=== PATIENT | male | born 1935 | race Caucasian/White ===

== ENCOUNTER 2022-12-18 19:31 | Inpatient (IN) | payer MEDICARE, SELFPAY ==
[2022-12-18 20:32] LABS: #Eosinphils 0.1 thou/uL (0.0-0.7); #Lymphocytes 1.6 thou/uL (1.20-3.40); #Monocytes 0.6 thou/uL (0.11-0.59); #Neutrophils 4.6 thou/uL (1.40-6.50); %Basophils 0.2 % (0.0-1.0); %Eosinophils 1.9 % (0.0-10.0); %Lymphocytes 22.5 % (21.0-51.0); %Monocytes 9.1 % (0.0-10.0); %Neutrophils 66.3 % (42.0-75.0); Hemoglobin 10.2 g/dL (14.0-18.0); Mean Corpuscular HGB CONC 32.7 g/dL (32.0-36.0); Mean Corpuscular Hemoglobin 31.2 pg (27.0-31.0); Mean Corpuscular Volume 95.5 fl (78.0-98.0); Mean Platelet Volume 9.2 fL (7.4-10.4); Platelet Count 125 10x3/uL (130-400); RBC Distribution Width 14.2 % (11.5-14.5); Red Blood Cell (RBC) Count 3.27 mill/uL (4.70-6.10)
[2022-12-18 20:52] LABS: ALT (SGPT) 27 U/L (8-55); AST (SGOT) 31 U/L (5-34); Albumin 3.4 g/dL (3.4-4.8); Alkaline Phosphatase 84 U/L (40-110); Anion Gap 10 mmol/L (10-20); BUN (Urea Nitrogen) 41 mg/dL (8.4-25.7); Bilirubin, Total 0.4 mg/dL (0.2-1.2); Calc. Creatinine Clearance 0 mL/min (70-130); Calcium 8.6 mg/dL (7.8-10.44); Carbon Dioxide 27 mmol/L (23-31); Chloride 103 mmol/L (98-107); Estimated GFR 35; Globulin 3.6 g/dL (2.4-3.5); Glucose 157 mg/dL (83-110); Potassium 4.5 mmol/L (3.5-5.1); Sodium 135 mmol/L (136-145)
[2022-12-18] MEDS ORDERED: Morphine 4 MG/ML VIAL ONE (22:57)
[2022-12-18] MEDS ORDERED: Ondansetron PF 4 MG/2 ML Vial ONE (22:57)
[2022-12-19] MEDS ORDERED: Morphine 4 MG/ML VIAL ONE ×4 (00:08→17:36)
[2022-12-19 00:31] LABS: Bilirubin Negative (Negative); Blood, Urine Negative (Negative); Clarity Clear (Clear); Glucose, Urine (Dipstick) Normal (Negative); Ketone, Urine Negative (Negative); Leukocyte Negative Leu/uL (Negative); Nitrite Negative (Negative); Protein, Urine (Dipstick) Negative (Neg-Trace); Urobilinogen Normal mg/dL (Less than 2); pH, Urine 5.5 (5.0-9.0)
[2022-12-19] MEDS ORDERED: cefTRIAXone\\ROCEPHIN 2 GM VIAL ONE ×2 (02:12→06:18)
[2022-12-19] MEDS ORDERED: HYDROmorphone 0.5 MG/0.5 ML SYRINGE SLOW IVP SCH (02:15)
[2022-12-19] MEDS ORDERED: Vancomycin 1 GM/200 ML (FROZEN) BAG ONE (02:53)
[2022-12-19] MEDS ORDERED: HYDROmorphone 0.5 MG/0.5 ML SYRINGE ONE (03:17)
[2022-12-19] MEDS: Sodium Chloride 0.9% 1,000 ML IV SCH ×3 (04:02→22:10)
[2022-12-19] MEDS: cefTRIAXone\\ROCEPHIN 2 GM in Sodium Chloride 0.9% 100 ML IVPB SCH ×2 (06:36→07:17)
[2022-12-19] MEDS ORDERED: Metoprolol Tartrate 25 MG TAB ONE (08:11)
[2022-12-19] MEDS: Levothyroxine Sodium 75 MCG TAB PO SCH (08:19)
[2022-12-19] MEDS: Potassium Chloride 10 MEQ TAB PO SCH (08:19)
[2022-12-19] MEDS: Metoprolol Tartrate 25 MG TAB PO SCH ×2 (08:19→22:06)
[2022-12-19] MEDS: Gabapentin 300 MG CAP PO SCH ×3 (08:19→22:06)
[2022-12-19] MEDS: Finasteride 5 MG TAB PO SCH (08:19)
[2022-12-19 08:48] VITALS: BMI 46.2
[2022-12-19] MEDS ORDERED: Rivaroxaban 10 MG TAB PO SCH (09:00)
[2022-12-19] MEDS ORDERED: Heparin 5,000 UNITS/ML VIAL SC SCH (09:00)
[2022-12-19] MEDS ORDERED: Vancomycin 1 GM in Premix Bag 1 BAG IVPB SCH (09:00)
[2022-12-19 09:47] LABS: #Eosinphils 0.1 thou/uL (0.0-0.7); #Lymphocytes 1.3 thou/uL (1.20-3.40); #Monocytes 0.9 thou/uL (0.11-0.59); #Neutrophils 5.3 thou/uL (1.40-6.50); %Eosinophils 1.3 % (0.0-10.0); %Lymphocytes 17.6 % (21.0-51.0); %Monocytes 11.6 % (0.0-10.0); %Neutrophils 69.5 % (42.0-75.0); Hemoglobin 10.9 g/dL (14.0-18.0); Mean Corpuscular Volume 96.7 fl (78.0-98.0); Mean Platelet Volume 8.3 fL (7.4-10.4); Platelet Count 146 10x3/uL (130-400); RBC Distribution Width 14.4 % (11.5-14.5); Red Blood Cell (RBC) Count 3.51 mill/uL (4.70-6.10); White Blood Cell (WBC) Count 7.6 10x3/uL (4.8-10.8)
[2022-12-19] MEDS: Morphine 4 MG/ML VIAL SLOW IVP PRN ×3 (09:52→22:07)
[2022-12-19 10:06] LABS: Anion Gap 14 mmol/L (10-20); BUN (Urea Nitrogen) 40 mg/dL (8.4-25.7); Calc. Creatinine Clearance 52 mL/min (70-130); Calcium 9.1 mg/dL (7.8-10.44); Carbon Dioxide 24 mmol/L (23-31); Chloride 103 mmol/L (98-107); Estimated GFR 35; Glucose 98 mg/dL (83-110); Potassium 5.4 mmol/L (3.5-5.1); Sodium 136 mmol/L (136-145)
[2022-12-19 10:17] LABS: SARS-CoV-2 NAA Rapid Test Not Detected (NotDetected)
[2022-12-19] MEDS: Atorvastatin Calcium 20 MG TAB PO SCH (22:06)
[2022-12-19] MEDS: Terazosin HCl 5 MG CAP PO SCH (22:06)
[2022-12-20] MEDS: rOPINIRole HCl 2 MG TAB PO SCH ×4 (00:12→20:14)
[2022-12-20] MEDS: Morphine 4 MG/ML VIAL SLOW IVP PRN ×2 (02:29→08:13)
[2022-12-20] MEDS: Sodium Chloride 0.9% 1,000 ML IV SCH (04:23)
[2022-12-20] MEDS: VANCOMYCIN 2 GRAM/500 ML BAG 2 GM in Premix Bag 1 BAG IVPB SCH (04:23)
[2022-12-20] MEDS: HYDROcodone/Acetaminophen 7.5/325 mg Tablet PO PRN ×3 (04:57→20:15)
[2022-12-20] MEDS: Levothyroxine Sodium 75 MCG TAB PO SCH (04:57)
[2022-12-20 07:15] LABS: #Eosinphils 0.1 thou/uL (0.0-0.7); #Lymphocytes 1.4 thou/uL (1.20-3.40); #Monocytes 0.7 thou/uL (0.11-0.59); #Neutrophils 5.1 thou/uL (1.40-6.50); %Basophils 0.2 % (0.0-1.0); %Eosinophils 1.8 % (0.0-10.0); %Lymphocytes 19.4 % (21.0-51.0); %Monocytes 9.9 % (0.0-10.0); %Neutrophils 68.6 % (42.0-75.0); Hemoglobin 9.9 g/dL (14.0-18.0); Mean Corpuscular HGB CONC 32.8 g/dL (32.0-36.0); Mean Corpuscular Hemoglobin 31.7 pg (27.0-31.0); Mean Corpuscular Volume 96.7 fl (78.0-98.0); Mean Platelet Volume 8.5 fL (7.4-10.4); Platelet Count 140 10x3/uL (130-400); RBC Distribution Width 14.2 % (11.5-14.5); Red Blood Cell (RBC) Count 3.14 mill/uL (4.70-6.10); White Blood Cell (WBC) Count 7.4 10x3/uL (4.8-10.8)
[2022-12-20 07:33] LABS: Anion Gap 14 mmol/L (10-20); BUN (Urea Nitrogen) 42 mg/dL (8.4-25.7); Calc. Creatinine Clearance 52 mL/min (70-130); Carbon Dioxide 22 mmol/L (23-31); Chloride 104 mmol/L (98-107); Potassium 5.2 mmol/L (3.5-5.1); Sodium 135 mmol/L (136-145)
[2022-12-20 07:34] LABS: Estimated GFR 35; Glucose 102 mg/dL (83-110)
[2022-12-20] MEDS: cefTRIAXone\\ROCEPHIN 2 GM in Sodium Chloride 0.9% 100 ML IVPB SCH (07:35)
[2022-12-20] MEDS: Potassium Chloride 10 MEQ TAB PO SCH (08:06)
[2022-12-20] MEDS: Finasteride 5 MG TAB PO SCH (08:06)
[2022-12-20] MEDS: Metoprolol Tartrate 25 MG TAB PO SCH (08:12)
[2022-12-20] MEDS: Gabapentin 300 MG CAP PO SCH ×3 (08:12→20:13)
[2022-12-20] MEDS ORDERED: Dextrose 50% Abboject 50 ML SYRINGE SLOW IVP SCH (08:30)
[2022-12-20] MEDS ORDERED: Insulin Regular 300 UNITS/3 ML VIAL IVP SCH (08:30)
[2022-12-20] MEDS: Rivaroxaban 15 MG TAB PO SCH (16:05)
[2022-12-20] MEDS: Terazosin HCl 5 MG CAP PO SCH (20:13)
[2022-12-20] MEDS: Atorvastatin Calcium 20 MG TAB PO SCH (20:14)
[2022-12-21] MEDS: HYDROcodone/Acetaminophen 7.5/325 mg Tablet PO PRN ×4 (00:11→21:50)
[2022-12-21] MEDS: Morphine 4 MG/ML VIAL SLOW IVP PRN ×3 (01:19→21:51)
[2022-12-21 02:38] LABS: Vancomycin, Trough 16.8 ug/mL
[2022-12-21 02:54] LABS: Anion Gap 16 mmol/L (10-20); BUN (Urea Nitrogen) 39 mg/dL (8.4-25.7); Calc. Creatinine Clearance 64 mL/min (70-130); Calcium 9.2 mg/dL (7.8-10.44); Carbon Dioxide 19 mmol/L (23-31); Chloride 105 mmol/L (98-107); Estimated GFR 45; Glucose 117 mg/dL (83-110); Potassium 4.9 mmol/L (3.5-5.1); Sodium 135 mmol/L (136-145)
[2022-12-21] MEDS: VANCOMYCIN 2 GRAM/500 ML BAG 2 GM in Premix Bag 1 BAG IVPB SCH (03:23)
[2022-12-21 03:26] LABS: Bilirubin Negative (Negative); Blood, Urine 3+ (Negative); CAUTI Indications for Culture Acute Hematuria; Clarity Extra Turbid (Clear); Glucose, Urine (Dipstick) Normal (Negative); Ketone, Urine Negative (Negative); Leukocyte 250 Leu/uL (Negative); Nitrite Negative (Negative); Protein, Urine (Dipstick) 70 mg/dL (Neg-Trace); RBC/HPF Greater than 50 HPF (0-3); Squamous Epithelial None Seen HPF (0-3); Urobilinogen Normal mg/dL (Less than 2)
[2022-12-21 03:27] LABS: Bacteria/HPF 1+ HPF (None Seen); Urine Culture Reflex Yes Yes
[2022-12-21] MEDS: Levothyroxine Sodium 75 MCG TAB PO SCH (06:06)
[2022-12-21] MEDS: rOPINIRole HCl 2 MG TAB PO SCH ×2 (08:22→21:50)
[2022-12-21] MEDS: Gabapentin 300 MG CAP PO SCH ×3 (08:22→21:50)
[2022-12-21] MEDS: Finasteride 5 MG TAB PO SCH (08:23)
[2022-12-21] MEDS: cefTRIAXone\\ROCEPHIN 2 GM in Sodium Chloride 0.9% 100 ML IVPB SCH (09:36)
[2022-12-21] MEDS: Rivaroxaban 15 MG TAB PO SCH (16:32)
[2022-12-21] MEDS ORDERED: Ipratropium/Albuterol 3 ML NEB NEB SCH (16:45)
[2022-12-21] MEDS: Atorvastatin Calcium 20 MG TAB PO SCH (21:50)
[2022-12-21] MEDS: Terazosin HCl 5 MG CAP PO SCH (21:50)
[2022-12-21] MEDS: Ipratropium/Albuterol 3 ML NEB NEB PRN (22:03)
[2022-12-22] MEDS: Morphine 4 MG/ML VIAL SLOW IVP PRN (05:34)
[2022-12-22] MEDS: HYDROcodone/Acetaminophen 7.5/325 mg Tablet PO PRN ×2 (05:35→09:47)
[2022-12-22] MEDS: cefTRIAXone\\ROCEPHIN 2 GM in Sodium Chloride 0.9% 100 ML IVPB SCH (05:36)
[2022-12-22] MEDS: Levothyroxine Sodium 75 MCG TAB PO SCH (05:36)
[2022-12-22 06:11] LABS: Hemoglobin 9.2 g/dL (14.0-18.0); Mean Corpuscular HGB CONC 31.9 g/dL (32.0-36.0); Mean Corpuscular Hemoglobin 30.5 pg (27.0-31.0); Mean Corpuscular Volume 95.7 fl (78.0-98.0); Mean Platelet Volume 7.9 fL (7.4-10.4); Platelet Count 170 10x3/uL (130-400); RBC Distribution Width 14.2 % (11.5-14.5); Red Blood Cell (RBC) Count 3.01 mill/uL (4.70-6.10); White Blood Cell (WBC) Count 5.5 10x3/uL (4.8-10.8)
[2022-12-22] MEDS: VANCOMYCIN 2 GRAM/500 ML BAG 2 GM in Premix Bag 1 BAG IVPB SCH (09:39)
[2022-12-22] MEDS: Gabapentin 300 MG CAP PO SCH ×3 (09:39→20:26)
[2022-12-22] MEDS: rOPINIRole HCl 2 MG TAB PO SCH ×2 (09:42→20:26)
[2022-12-22] MEDS: Finasteride 5 MG TAB PO SCH (09:42)
[2022-12-22] MEDS ORDERED: Docusate 100 MG CAP PO SCH (09:45)
[2022-12-22] MEDS ORDERED: Polyethylene Glycol 3350 17 GM Packet PO SCH (09:45)
[2022-12-22] MEDS: Nystatin Powder 15 GM BOT TOP PRN (11:04)
[2022-12-22] MEDS: HYDROcodone/Acetaminophen 10/325 mg Tablet PO PRN ×2 (14:28→20:27)
[2022-12-22] MEDS: Lidocaine 5% Patch TD SCH (14:46)
[2022-12-22] MEDS: Ipratropium/Albuterol 3 ML NEB NEB PRN (15:04)
[2022-12-22] MEDS: Rivaroxaban 15 MG TAB PO SCH (18:10)
[2022-12-22] MEDS: Cefepime 1 GM in Sodium Chloride 0.9% 100 ML IVPB SCH (20:25)
[2022-12-22] MEDS: Terazosin HCl 5 MG CAP PO SCH (20:26)
[2022-12-22] MEDS: Atorvastatin Calcium 20 MG TAB PO SCH (20:26)
[2022-12-23] MEDS ORDERED: Transdermal Patch Removal TOP SCH (00:01)
[2022-12-23] MEDS: HYDROcodone/Acetaminophen 10/325 mg Tablet PO PRN ×4 (03:07→18:22)
[2022-12-23] MEDS: Ipratropium/Albuterol 3 ML NEB NEB PRN ×2 (03:22→16:06)
[2022-12-23] MEDS: Levothyroxine Sodium 75 MCG TAB PO SCH (05:06)
[2022-12-23] MEDS: rOPINIRole HCl 2 MG TAB PO SCH ×2 (08:32→21:02)
[2022-12-23] MEDS: Docusate 100 MG CAP PO PRN (08:32)
[2022-12-23] MEDS: Polyethylene Glycol 3350 17 GM Packet PO PRN (08:32)
[2022-12-23] MEDS: Finasteride 5 MG TAB PO SCH (08:33)
[2022-12-23] MEDS: Cefepime 1 GM in Sodium Chloride 0.9% 100 ML IVPB SCH ×2 (08:33→21:02)
[2022-12-23] MEDS: Gabapentin 300 MG CAP PO SCH ×3 (08:33→21:02)
[2022-12-23] MEDS: VANCOMYCIN 2 GRAM/500 ML BAG 2 GM in Premix Bag 1 BAG IVPB SCH (10:05)
[2022-12-23] MEDS: Morphine 4 MG/ML VIAL SLOW IVP PRN ×2 (10:21→21:09)
[2022-12-23] MEDS: Lidocaine 5% Patch TD SCH (13:50)
[2022-12-23] MEDS: Lidocaine 4% Patch TD SCH (14:09)
[2022-12-23] MEDS: Rivaroxaban 15 MG TAB PO SCH (18:22)
[2022-12-23] MEDS: Terazosin HCl 5 MG CAP PO SCH (21:01)
[2022-12-23] MEDS: Atorvastatin Calcium 20 MG TAB PO SCH (21:02)
[2022-12-23] MEDS: Nystatin Powder 15 GM BOT TOP PRN (21:10)
[2022-12-24] MEDS: HYDROcodone/Acetaminophen 10/325 mg Tablet PO PRN ×2 (00:10→05:09)
[2022-12-24] MEDS: LIDOCAINE Patch Removal TOP SCH (01:56)
[2022-12-24] MEDS: Ipratropium/Albuterol 3 ML NEB NEB PRN (02:06)
[2022-12-24] MEDS: Levothyroxine Sodium 75 MCG TAB PO SCH (05:09)
[2022-12-24] MEDS: rOPINIRole HCl 2 MG TAB PO SCH ×2 (07:41→20:03)
[2022-12-24] MEDS: Gabapentin 300 MG CAP PO SCH ×3 (07:41→20:03)
[2022-12-24] MEDS: Cefepime 1 GM in Sodium Chloride 0.9% 100 ML IVPB SCH ×2 (07:42→20:04)
[2022-12-24] MEDS: Finasteride 5 MG TAB PO SCH (07:42)
[2022-12-24] MEDS: Morphine 4 MG/ML VIAL SLOW IVP PRN ×2 (07:43→08:47)
[2022-12-24 08:54] LABS: Vancomycin, Random 14.8 ug/mL (See Comment)
[2022-12-24] MEDS ORDERED: VANCOMYCIN 2 GRAM/500 ML BAG 2 GM in Premix Bag 1 BAG IVPB SCH (09:00)
[2022-12-24 09:14] LABS: Anion Gap 15 mmol/L (10-20); BUN (Urea Nitrogen) 28 mg/dL (8.4-25.7); Calc. Creatinine Clearance 86 mL/min (70-130); Calcium 9.4 mg/dL (7.8-10.44); Carbon Dioxide 21 mmol/L (23-31); Chloride 104 mmol/L (98-107); Estimated GFR 64; Glucose 89 mg/dL (83-110); Potassium 4.9 mmol/L (3.5-5.1); Sodium 135 mmol/L (136-145)
[2022-12-24] MEDS ORDERED: Ipratropium/Albuterol 3 ML NEB NEB SCH (10:30)
[2022-12-24] MEDS ORDERED: Torsemide 100 MG TAB PO SCH (10:45)
[2022-12-24] MEDS: Vancomycin 1.5 GRAM/300 ML BAG 1.5 GM in Premix Bag 1 BAG IVPB SCH (12:12)
[2022-12-24] MEDS: Lidocaine 4% Patch TD SCH (18:16)
[2022-12-24] MEDS: Rivaroxaban 10 MG TAB PO SCH (18:17)
[2022-12-24] MEDS: Terazosin HCl 5 MG CAP PO SCH (20:03)
[2022-12-24] MEDS: HYDROcodone/Acetaminophen 7.5/325 mg Tablet PO PRN (20:03)
[2022-12-24] MEDS: Atorvastatin Calcium 20 MG TAB PO SCH (20:04)
[2022-12-25] MEDS: HYDROcodone/Acetaminophen 10/325 mg Tablet PO PRN ×3 (03:38→15:03)
[2022-12-25] MEDS: Levothyroxine Sodium 75 MCG TAB PO SCH (06:26)
[2022-12-25] MEDS: LIDOCAINE Patch Removal TOP SCH (06:26)
[2022-12-25] MEDS: Cefepime 1 GM in Sodium Chloride 0.9% 100 ML IVPB SCH ×2 (08:14→20:13)
[2022-12-25] MEDS: rOPINIRole HCl 2 MG TAB PO SCH ×2 (08:15→21:24)
[2022-12-25] MEDS: Gabapentin 300 MG CAP PO SCH ×3 (08:15→20:14)
[2022-12-25] MEDS: Finasteride 5 MG TAB PO SCH (08:15)
[2022-12-25] MEDS: Ipratropium/Albuterol 3 ML NEB NEB PRN ×2 (08:16→23:35)
[2022-12-25] MEDS: Polyethylene Glycol 3350 17 GM Packet PO PRN (08:37)
[2022-12-25] MEDS: Torsemide 100 MG TAB PO SCH (08:37)
[2022-12-25] MEDS: Docusate 100 MG CAP PO PRN (08:37)
[2022-12-25] MEDS: Vancomycin 1.5 GRAM/300 ML BAG 1.5 GM in Premix Bag 1 BAG IVPB SCH (09:58)
[2022-12-25] MEDS: Ondansetron PF 4 MG/2 ML Vial IVP PRN ×2 (10:30→10:32)
[2022-12-25] MEDS ORDERED: Bisacodyl 10 MG SUPP PR SCH (11:45)
[2022-12-25] MEDS: Lidocaine 4% Patch TD SCH (15:04)
[2022-12-25] MEDS: Rivaroxaban 10 MG TAB PO SCH (18:03)
[2022-12-25] MEDS: Terazosin HCl 5 MG CAP PO SCH (20:14)
[2022-12-25] MEDS: Atorvastatin Calcium 20 MG TAB PO SCH (20:16)
[2022-12-25] MEDS: Docusate 100 MG CAP PO SCH (20:16)
[2022-12-25] MEDS: Polyethylene Glycol 3350 17 GM Packet PO SCH (20:17)
[2022-12-25] MEDS: HYDROcodone/Acetaminophen 7.5/325 mg Tablet PO PRN (23:25)
[2022-12-26] MEDS: LIDOCAINE Patch Removal TOP SCH (02:09)
[2022-12-26] MEDS: Levothyroxine Sodium 75 MCG TAB PO SCH (05:10)
[2022-12-26] MEDS: HYDROcodone/Acetaminophen 7.5/325 mg Tablet PO PRN (05:12)
[2022-12-26 08:01] LABS: Prothrombin Time 23.7 sec (12.0-14.7)
[2022-12-26] MEDS: Polyethylene Glycol 3350 17 GM Packet PO SCH ×2 (08:46→20:54)
[2022-12-26] MEDS: Gabapentin 300 MG CAP PO SCH ×3 (08:46→20:54)
[2022-12-26] MEDS: Docusate 100 MG CAP PO SCH ×2 (08:46→20:54)
[2022-12-26] MEDS: Finasteride 5 MG TAB PO SCH (08:47)
[2022-12-26] MEDS: HYDROcodone/Acetaminophen 10/325 mg Tablet PO PRN ×2 (08:47→17:48)
[2022-12-26] MEDS: Cefepime 1 GM in Sodium Chloride 0.9% 100 ML IVPB SCH ×2 (08:56→20:53)
[2022-12-26 09:13] LABS: Vancomycin, Trough 18.8 ug/mL
[2022-12-26] MEDS: Torsemide 100 MG TAB PO SCH (13:24)
[2022-12-26] MEDS: rOPINIRole HCl 2 MG TAB PO SCH ×2 (13:24→20:54)
[2022-12-26] MEDS: Vancomycin 1.5 GRAM/300 ML BAG 1.5 GM in Premix Bag 1 BAG IVPB SCH (14:35)
[2022-12-26] MEDS: Lidocaine 4% Patch TD SCH (14:47)
[2022-12-26] MEDS: Rivaroxaban 10 MG TAB PO SCH (17:48)
[2022-12-26] MEDS: Ondansetron PF 4 MG/2 ML Vial IVP PRN (17:48)
[2022-12-26] MEDS: Atorvastatin Calcium 20 MG TAB PO SCH (20:54)
[2022-12-26] MEDS: Terazosin HCl 5 MG CAP PO SCH (20:54)
[2022-12-27] MEDS: LIDOCAINE Patch Removal TOP SCH (03:10)
[2022-12-27] MEDS: Levothyroxine Sodium 75 MCG TAB PO SCH (05:04)
[2022-12-27] MEDS: Torsemide 100 MG TAB PO SCH (08:23)
[2022-12-27] MEDS: Finasteride 5 MG TAB PO SCH (08:27)
[2022-12-27] MEDS: Gabapentin 300 MG CAP PO SCH ×3 (08:27→20:27)
[2022-12-27] MEDS: Docusate 100 MG CAP PO SCH ×2 (08:27→20:27)
[2022-12-27] MEDS: Polyethylene Glycol 3350 17 GM Packet PO SCH ×2 (08:28→20:27)
[2022-12-27] MEDS: HYDROcodone/Acetaminophen 10/325 mg Tablet PO PRN (08:33)
[2022-12-27] MEDS: Cefepime 1 GM in Sodium Chloride 0.9% 100 ML IVPB SCH ×2 (08:34→20:26)
[2022-12-27] MEDS: rOPINIRole HCl 2 MG TAB PO SCH ×2 (08:34→20:26)
[2022-12-27 09:47] LABS: #Eosinphils 0.2 thou/uL (0.0-0.7); #Lymphocytes 1.4 thou/uL (1.20-3.40); #Monocytes 0.6 thou/uL (0.11-0.59); #Neutrophils 4.2 thou/uL (1.40-6.50); %Basophils 0.2 % (0.0-1.0); %Eosinophils 3.8 % (0.0-10.0); %Lymphocytes 22.2 % (21.0-51.0); %Monocytes 8.7 % (0.0-10.0); %Neutrophils 65.1 % (42.0-75.0); Hemoglobin 9.7 g/dL (14.0-18.0); Mean Corpuscular HGB CONC 31.7 g/dL (32.0-36.0); Mean Corpuscular Volume 94.7 fl (78.0-98.0); Mean Platelet Volume 6.9 fL (7.4-10.4); Platelet Count 275 10x3/uL (130-400); RBC Distribution Width 13.5 % (11.5-14.5); Red Blood Cell (RBC) Count 3.25 mill/uL (4.70-6.10); White Blood Cell (WBC) Count 6.4 10x3/uL (4.8-10.8)
[2022-12-27] MEDS: Vancomycin 1.5 GRAM/300 ML BAG 1.5 GM in Premix Bag 1 BAG IVPB SCH (09:48)
[2022-12-27 09:56] LABS: Anion Gap 13 mmol/L (10-20); BUN (Urea Nitrogen) 31 mg/dL (8.4-25.7); Calc. Creatinine Clearance 72 mL/min (70-130); Carbon Dioxide 35 mmol/L (23-31); Chloride 93 mmol/L (98-107); Estimated GFR 52; Glucose 121 mg/dL (83-110); Potassium 3.5 mmol/L (3.5-5.1); Sodium 137 mmol/L (136-145)
[2022-12-27] MEDS: HYDROcodone/Acetaminophen 7.5/325 mg Tablet PO PRN ×3 (12:27→20:27)
[2022-12-27] MEDS: Rivaroxaban 10 MG TAB PO SCH (16:46)
[2022-12-27] MEDS: Lidocaine 4% Patch TD SCH (16:46)
[2022-12-27] MEDS: Terazosin HCl 5 MG CAP PO SCH (20:27)
[2022-12-27] MEDS: Atorvastatin Calcium 20 MG TAB PO SCH (20:27)
[2022-12-28] MEDS: LIDOCAINE Patch Removal TOP SCH (04:57)
[2022-12-28] MEDS: HYDROcodone/Acetaminophen 7.5/325 mg Tablet PO PRN (05:08)
[2022-12-28] MEDS: Levothyroxine Sodium 75 MCG TAB PO SCH (05:09)
[2022-12-28 06:41] LABS: Anion Gap 15 mmol/L (10-20); BUN (Urea Nitrogen) 33 mg/dL (8.4-25.7); Calc. Creatinine Clearance 63 mL/min (70-130); Calcium 9.1 mg/dL (7.8-10.44); Carbon Dioxide 33 mmol/L (23-31); Chloride 94 mmol/L (98-107); Estimated GFR 44; Glucose 93 mg/dL (83-110); Potassium 3.6 mmol/L (3.5-5.1); Sodium 138 mmol/L (136-145)
[2022-12-28] MEDS: Docusate 100 MG CAP PO SCH ×3 (08:11→20:26)
[2022-12-28] MEDS: Gabapentin 300 MG CAP PO SCH ×3 (08:23→20:26)
[2022-12-28] MEDS: rOPINIRole HCl 2 MG TAB PO SCH ×2 (08:23→20:27)
[2022-12-28] MEDS: Cefepime 1 GM in Sodium Chloride 0.9% 100 ML IVPB SCH ×2 (08:23→20:27)
[2022-12-28] MEDS: Finasteride 5 MG TAB PO SCH (08:23)
[2022-12-28] MEDS: Polyethylene Glycol 3350 17 GM Packet PO SCH ×2 (08:25→20:28)
[2022-12-28] MEDS: HYDROcodone/Acetaminophen 10/325 mg Tablet PO PRN ×3 (10:34→20:25)
[2022-12-28] MEDS ORDERED: Vancomycin 1.5 GRAM/300 ML BAG 1.5 GM in Premix Bag 1 BAG IVPB SCH (11:00)
[2022-12-28] MEDS: Vancomycin 1.5 GRAM/300 ML BAG 1.5 GM in Premix Bag 1 BAG IVPB SCH (11:25)
[2022-12-28] MEDS: Lidocaine 4% Patch TD SCH (15:29)
[2022-12-28] MEDS: Rivaroxaban 15 MG TAB PO SCH (16:08)
[2022-12-28] MEDS: Terazosin HCl 5 MG CAP PO SCH (20:27)
[2022-12-28] MEDS: Atorvastatin Calcium 20 MG TAB PO SCH (20:27)
[2022-12-28 22:29] LABS: Vancomycin, Trough 21.4 ug/mL
[2022-12-29] MEDS: LIDOCAINE Patch Removal TOP SCH (04:15)
[2022-12-29] MEDS: HYDROcodone/Acetaminophen 10/325 mg Tablet PO PRN (05:44)
[2022-12-29] MEDS: Levothyroxine Sodium 75 MCG TAB PO SCH (05:44)
[2022-12-29 07:36] LABS: Anion Gap 14 mmol/L (10-20); BUN (Urea Nitrogen) 33 mg/dL (8.4-25.7); CRP (Inflammatory) 3.04 mg/dL (= or < 0.5); Calc. Creatinine Clearance 65 mL/min (70-130); Calcium 9.3 mg/dL (7.8-10.44); Carbon Dioxide 34 mmol/L (23-31); Chloride 95 mmol/L (98-107); Estimated GFR 46; Glucose 93 mg/dL (83-110); Potassium 3.8 mmol/L (3.5-5.1); Sodium 139 mmol/L (136-145)
[2022-12-29] MEDS: Polyethylene Glycol 3350 17 GM Packet PO SCH ×2 (08:47→21:29)
[2022-12-29] MEDS: Cefepime 1 GM in Sodium Chloride 0.9% 100 ML IVPB SCH ×2 (08:47→21:30)
[2022-12-29] MEDS: rOPINIRole HCl 2 MG TAB PO SCH ×2 (08:48→21:30)
[2022-12-29] MEDS: Finasteride 5 MG TAB PO SCH (08:48)
[2022-12-29] MEDS: Gabapentin 300 MG CAP PO SCH ×3 (08:48→21:29)
[2022-12-29] MEDS: Docusate 100 MG CAP PO SCH ×2 (08:49→21:29)
[2022-12-29] MEDS: Ipratropium/Albuterol 3 ML NEB NEB PRN (09:44)
[2022-12-29] MEDS: Vancomycin 1 GM in Premix Bag 1 BAG IVPB SCH (11:10)
[2022-12-29] MEDS: HYDROcodone/Acetaminophen 7.5/325 mg Tablet PO PRN (11:11)
[2022-12-29] MEDS: Lidocaine 4% Patch TD SCH ×2 (14:36→14:40)
[2022-12-29] MEDS: HYDROcodone/Acetaminophen 5/325 mg Tablet PO SCH ×2 (14:36→21:30)
[2022-12-29] MEDS: Rivaroxaban 15 MG TAB PO SCH (16:26)
[2022-12-29] MEDS: Terazosin HCl 5 MG CAP PO SCH (21:29)
[2022-12-29] MEDS: Atorvastatin Calcium 20 MG TAB PO SCH (21:29)
[2022-12-30] MEDS: LIDOCAINE Patch Removal TOP SCH (03:07)
[2022-12-30] MEDS: Levothyroxine Sodium 75 MCG TAB PO SCH (04:08)
[2022-12-30] MEDS: HYDROcodone/Acetaminophen 5/325 mg Tablet PO PRN ×2 (04:08→10:06)
[2022-12-30 06:11] LABS: Anion Gap 12 mmol/L (10-20); BUN (Urea Nitrogen) 31 mg/dL (8.4-25.7); Calc. Creatinine Clearance 66 mL/min (70-130); Calcium 9.5 mg/dL (7.8-10.44); Carbon Dioxide 35 mmol/L (23-31); Chloride 95 mmol/L (98-107); Estimated GFR 47; Glucose 93 mg/dL (83-110); Sodium 138 mmol/L (136-145)
[2022-12-30] MEDS: rOPINIRole HCl 2 MG TAB PO SCH ×2 (08:34→20:49)
[2022-12-30] MEDS: Gabapentin 300 MG CAP PO SCH ×3 (08:34→20:50)
[2022-12-30] MEDS: Finasteride 5 MG TAB PO SCH (08:35)
[2022-12-30] MEDS: Docusate 100 MG CAP PO SCH ×2 (08:35→20:51)
[2022-12-30] MEDS: HYDROcodone/Acetaminophen 5/325 mg Tablet PO SCH ×3 (08:35→20:52)
[2022-12-30] MEDS: Polyethylene Glycol 3350 17 GM Packet PO SCH ×2 (08:35→20:51)
[2022-12-30] MEDS: Cefepime 1 GM in Sodium Chloride 0.9% 100 ML IVPB SCH ×2 (08:36→20:51)
[2022-12-30] MEDS: Vancomycin 1 GM in Premix Bag 1 BAG IVPB SCH (10:06)
[2022-12-30] MEDS: Lidocaine 4% Patch TD SCH (15:01)
[2022-12-30] MEDS: Rivaroxaban 15 MG TAB PO SCH (17:01)
[2022-12-30 17:51] LABS: Bilirubin Negative (Negative); Blood, Urine 2+ (Negative); Clarity Turbid (Clear); Glucose, Urine (Dipstick) Normal (Negative); Ketone, Urine Negative (Negative); Leukocyte 25 Leu/uL (Negative); Nitrite Negative (Negative); Protein, Urine (Dipstick) 50 mg/dL (Neg-Trace); Specific Gravity, Urine 1.018 (1.002-1.036); Squamous Epithelial 0-3 HPF (0-3); Urobilinogen Normal mg/dL (Less than 2); pH, Urine 5.5 (5.0-9.0)
[2022-12-30 17:54] LABS: Bacteria/HPF 1+ HPF (None Seen)
[2022-12-30] MEDS: Atorvastatin Calcium 20 MG TAB PO SCH (20:50)
[2022-12-30] MEDS: Terazosin HCl 5 MG CAP PO SCH (20:50)
[2022-12-31] MEDS: LIDOCAINE Patch Removal TOP SCH (00:17)
[2022-12-31] MEDS: HYDROcodone/Acetaminophen 5/325 mg Tablet PO PRN ×2 (06:30→16:52)
[2022-12-31] MEDS: Levothyroxine Sodium 75 MCG TAB PO SCH (06:30)
[2022-12-31 06:34] LABS: Calcium, Ionized (venous) 1.16 mmol/L (1.16-1.32); Chloride (VBG) 98 mmol/L (98-106); Potassium (VBG) 4.15 mmol/L (3.70-5.30); Sodium 138.1 mmol/L (133-146); pH (venous) 7.41 (7.32-7.43)
[2022-12-31 06:35] LABS: Actual Bicarbonate (HCO3v) 40 mEq/L (22-28)
[2022-12-31 07:06] LABS: Anion Gap 12 mmol/L (10-20); BUN (Urea Nitrogen) 31 mg/dL (8.4-25.7); Calc. Creatinine Clearance 70 mL/min (70-130); Calcium 9.4 mg/dL (7.8-10.44); Carbon Dioxide 36 mmol/L (23-31); Chloride 96 mmol/L (98-107); Estimated GFR 50; Glucose 89 mg/dL (83-110); Potassium 4.2 mmol/L (3.5-5.1); Sodium 140 mmol/L (136-145)
[2022-12-31] MEDS: Cefepime 1 GM in Sodium Chloride 0.9% 100 ML IVPB SCH ×2 (08:23→21:44)
[2022-12-31] MEDS: rOPINIRole HCl 2 MG TAB PO SCH ×2 (08:23→21:42)
[2022-12-31] MEDS: Finasteride 5 MG TAB PO SCH (08:26)
[2022-12-31] MEDS: Gabapentin 300 MG CAP PO SCH ×3 (08:26→21:42)
[2022-12-31] MEDS: Docusate 100 MG CAP PO SCH ×2 (08:26→21:07)
[2022-12-31] MEDS: Polyethylene Glycol 3350 17 GM Packet PO SCH ×2 (08:27→21:07)
[2022-12-31] MEDS: HYDROcodone/Acetaminophen 5/325 mg Tablet PO SCH ×3 (08:27→21:42)
[2022-12-31] MEDS ORDERED: Electrolyte Replacement Protocol 1 EACH FS SCH (09:30)
[2022-12-31] MEDS ORDERED: Electrolyte Replacement Protocol FS PRN (09:45)
[2022-12-31 10:40] LABS: Vancomycin, Trough 19.8 ug/mL
[2022-12-31] MEDS ORDERED: rOPINIRole HCl 2 MG TAB PO PRN (11:34)
[2022-12-31] MEDS ORDERED: Aquaphor 10 GM TUBE TOP PRN (11:40)
[2022-12-31] MEDS: Vancomycin 1 GM in Premix Bag 1 BAG IVPB SCH (11:56)
[2022-12-31] MEDS ORDERED: Saccharomyces boulardii 250 MG CAP PO SCH (14:00)
[2022-12-31] MEDS: Lidocaine 4% Patch TD SCH (14:48)
[2022-12-31] MEDS: Ipratropium/Albuterol 3 ML NEB NEB PRN (15:01)
[2022-12-31] MEDS ORDERED: Ipratropium/Albuterol 3 ML NEB NEB PRN (15:26)
[2022-12-31] MEDS ORDERED: hydrALAZINE 25 MG TAB PO PRN (15:27)
[2022-12-31] MEDS ORDERED: Ipratropium/Albuterol 3 ML NEB NEB SCH (15:30)
[2022-12-31] MEDS: Rivaroxaban 15 MG TAB PO SCH (16:24)
[2022-12-31] MEDS ORDERED: Furosemide 40 MG/4 ML VIAL SLOW IVP SCH (17:45)
[2022-12-31] MEDS: Ipratropium/Albuterol 3 ML NEB NEB SCH (18:45)
[2022-12-31] MEDS: Terazosin HCl 5 MG CAP PO SCH (21:42)
[2022-12-31] MEDS: Atorvastatin Calcium 20 MG TAB PO SCH (21:42)
[2023-01-01] MEDS: Ipratropium/Albuterol 3 ML NEB NEB SCH ×2 (00:25→07:19)
[2023-01-01] MEDS: LIDOCAINE Patch Removal TOP SCH (03:11)
[2023-01-01] MEDS: Levothyroxine Sodium 75 MCG TAB PO SCH (06:28)
[2023-01-01] MEDS: HYDROcodone/Acetaminophen 5/325 mg Tablet PO PRN (06:28)
[2023-01-01 06:54] LABS: Hemoglobin 8.9 g/dL (14.0-18.0); Platelet Count 285 10x3/uL (130-400)
[2023-01-01 07:15] LABS: Anion Gap 11 mmol/L (10-20); BUN (Urea Nitrogen) 29 mg/dL (8.4-25.7); Calc. Creatinine Clearance 64 mL/min (70-130); Calcium 9.1 mg/dL (7.8-10.44); Carbon Dioxide 35 mmol/L (23-31); Chloride 97 mmol/L (98-107); Estimated GFR 45; Glucose 89 mg/dL (83-110); Potassium 4.1 mmol/L (3.5-5.1); Sodium 139 mmol/L (136-145)
[2023-01-01] MEDS ORDERED: Magnesium 2 GM/50 ML(in water) 2 GM in Premix Bag 1 BAG IVPB SCH (08:15)
[2023-01-01] MEDS: Cefepime 1 GM in Sodium Chloride 0.9% 100 ML IVPB SCH (08:59)
[2023-01-01] MEDS: Docusate 100 MG CAP PO SCH (09:00)
[2023-01-01] MEDS: rOPINIRole HCl 2 MG TAB PO SCH (09:00)
[2023-01-01] MEDS: Gabapentin 300 MG CAP PO SCH (09:00)
[2023-01-01] MEDS: Finasteride 5 MG TAB PO SCH (09:01)
[2023-01-01] MEDS: HYDROcodone/Acetaminophen 5/325 mg Tablet PO SCH (09:01)
[2023-01-01] MEDS: Polyethylene Glycol 3350 17 GM Packet PO SCH (09:02)
[2023-01-01] MEDS: Vancomycin 1 GM in Premix Bag 1 BAG IVPB SCH (11:45)
[2023-01-01] MEDS ORDERED: Torsemide 100 MG TAB PO SCH (11:45)
[2023-01-01 12:18] VITALS: BP 167/74; TEMP 98.3
[2023-01-02] MEDS ORDERED: Torsemide 100 MG TAB PO SCH (09:00)
== END 2023-01-01 12:19 | DRG 551 ==
LOC: ERS 19:31 → ERHOLD 12-19 02:07 → SURG A 12-19 19:41 → T4-A 12-25 18:13
PROVIDERS: ADMIT Internal Medicine; ATTEND Internal Medicine
PROC: 02HV33Z Insertion of Infusion Device into Superior Vena Cava, Percutaneous Approach (ICD-10-PCS; principal; 2022-12-26)
PROC: B5181ZA Fluoroscopy of Superior Vena Cava using Low Osmolar Contrast, Guidance (ICD-10-PCS; 2022-12-26)
PROC: B548ZZA Ultrasonography of Superior Vena Cava, Guidance (ICD-10-PCS; 2022-12-26)
DX: M46.46 Discitis, unspecified, lumbar region (principal); J96.01 Acute respiratory failure with hypoxia; N17.9 Acute kidney failure, unspecified; E66.2 Morbid (severe) obesity with alveolar hypoventilation; E87.3 Alkalosis; N39.0 Urinary tract infection, site not specified; Z68.41 Body mass index [BMI] 40.0-44.9, adult; M60.9 Myositis, unspecified; Z20.822 Contact with and (suspected) exposure to COVID-19; N18.30 Chronic kidney disease, stage 3 unspecified; E87.5 Hyperkalemia; I48.0 Paroxysmal atrial fibrillation; E03.9 Hypothyroidism, unspecified; G25.81 Restless legs syndrome; D53.9 Nutritional anemia, unspecified; D63.1 Anemia in chronic kidney disease; I12.9 Hypertensive chronic kidney disease with stage 1 through stage 4 chronic kidney disease, or unspecified chronic kidney disease; E78.5 Hyperlipidemia, unspecified; G89.29 Other chronic pain; R31.0 Gross hematuria; K59.03 Drug induced constipation; T40.2X5A Adverse effect of other opioids, initial encounter; E87.6 Hypokalemia; Z98.890 Other specified postprocedural states; Z87.442 Personal history of urinary calculi; Z79.899 Other long term (current) drug therapy; Z79.890 Hormone replacement therapy; Z79.01 Long term (current) use of anticoagulants
CPT/HCPCS: 36415; 36569; 71045; 74176; 76770; 80048; 80053; 80202; 81001; 81003; 82805; 83690; 83735; 84145; 84443; 85014; 85018; 85025; 85027; 85049; 85610; 85652; 86140; 87040; 87086; 87811; 94640; 94760; 96365; 96367; 96375; 96376; 97139; C1751; J0692; J0696; J1170; J1815; J1940; J2270; J2405; J3370; J3370-JW; J3475; J3490; J7050; J7620; J7999; U0002